=== PATIENT | male | born 1980 | race Caucasian/White ===

== ENCOUNTER 2022-09-22 04:17 | Day surgery (SDC) | payer BC, OTHER ==
[2022-09-20 16:25] VITALS: BMI 26.1
[2022-09-22 10:33] VITALS: TEMP 97.7
[2022-09-22 11:19] VITALS: BP 117/67; PULSE 66; RESP 19
== END 2022-09-22 11:26 | disposition home or self-care (01) ==
LOC: JASU-ENDO 04:17
PROVIDERS: ATTEND Internal Medicine Gastroenterology
PROC: 0DJD8ZZ Inspection of Lower Intestinal Tract, Via Natural or Artificial Opening Endoscopic (ICD-10-PCS; principal; 2022-09-22 10:00)
DX: Z12.11 Encounter for screening for malignant neoplasm of colon (principal); D12.8 Benign neoplasm of rectum; K64.8 Other hemorrhoids; K63.5 Polyp of colon
CPT/HCPCS: 88305-TC

== ENCOUNTER 2023-01-17 11:55 | Emergency (ER) | payer BC, OTHER ==
[2023-01-17 12:09] VITALS: BP 131/78; PULSE 77; RESP 18; TEMP 97.6; BMI 26.5
[2023-01-17 13:32] LABS: BASO % 0.4 % (0-2.0); EOS % 3.5 % (0-4.5); HEMATOCRIT 45.4 % (35.4-49); HEMOGLOBIN 15.9 GM/dL (11.7-16.9); LYMPH % 15.5 % (8-40); MCH 29.7 pg (25.7-33.7); MCHC 35.1 g/dl (32.0-35.9); MEAN CELL VOLUME 84.8 fl (80-96); MEAN PLT VOLUME 7.3 fl (7.5-11.1); MONO % 6.6 % (3.8-10.2); PLATELET COUNT 261 10^3/uL (134-434); RBC 5.35 M/mm3 (4.00-5.60); RDW 12.9 % (11.9-15.9); WHITE BLOOD COUNT 9.1 K/mm3 (4.0-10.0)
[2023-01-17 13:55] LABS: ALBUMIN 4.3 g/dl (3.4-5.0)
[2023-01-17 13:57] LABS: BLOOD UREA NITROGEN 12.1 mg/dL (7-18); CALCIUM 9.1 mg/dL (8.5-10.1)
[2023-01-17 14:01] LABS: BILIRUBIN,TOTAL 0.6 mg/dL (0.2-1); TOT PROT 7.1 g/dl (6.4-8.2)
[2023-01-17 14:03] LABS: CREATININE 0.7 mg/dL (0.55-1.3)
== END 2023-01-17 16:47 | disposition home or self-care (01) ==
LOC: JER 11:55
DX: R07.89 Other chest pain (principal); Z20.822 Contact with and (suspected) exposure to COVID-19
CPT/HCPCS: 0241U-QW; 36415; 71046-TC-FY; 80053; 82550; 84484; 85025; 93005; 93010; 99285-25

== ENCOUNTER 2023-04-05 12:14 | Emergency (ER) | payer BC, OTHER ==
[2023-04-05 12:31] VITALS: BP 154/74; PULSE 81; RESP 18; TEMP 99; BMI 27.2
[2023-04-05] MEDS ORDERED: ACETAMINOPHEN 325 MG TABLET (FP) PO ONE (12:33)
[2023-04-05] MEDS ORDERED: LIDOCAINE 5% TOPICAL PATCH TP ONE (12:43)
[2023-04-05] MEDS ORDERED: LIDOCAINE 5% TOPICAL PATCH ONE (13:00)
[2023-04-05] MEDS ORDERED: ACETAMINOPHEN 325 MG TABLET (FP) ONE (13:00)
[2023-04-05 13:49] LABS: HEMOGLOBIN 16.4 G/dL (11.7-16.9); MCH 30.1 pg (25.7-33.7); MCHC 34.3 g/dl (32.0-35.9); MEAN CELL VOLUME 87.9 fl (80-96); MEAN PLT VOLUME 7.6 fl (7.5-11.1); PLATELET COUNT 240.9 10^3/uL (134-434); RBC 5.46 10^6/uL (4.00-5.60); RDW 13.7 % (11.9-15.9); WHITE BLOOD COUNT 8.3 10^3/uL (4.0-10.8)
[2023-04-05 14:14] LABS: ALBUMIN 4.7 g/dl (3.4-5.0); ALK PHOS 76 U/L (45-117); ANION GAP 9 mmol/L (4-13); BILIRUBIN,TOTAL 0.6 mg/dl (0.2-1); CALCIUM 9.6 mg/dl (8.5-10.1); CHLORIDE 102 mmol/L (98-107); CO2 30 mmol/L (21-32); CREATININE 0.8 mg/dl (0.6-1.3); GLUCOSE,RANDOM 88 mg/dl (74-106); SGOT/AST 15 U/L (15-37); SGPT/ALT 18 U/L (7-52); SODIUM 141 mmol/L (136-145); TOT PROT 6.9 g/dl (6.4-8.2)
[2023-04-05 15:31] LABS: PLATELET ESTIMATE ADEQUATE
== END 2023-04-05 14:52 | disposition home or self-care (01) ==
LOC: FER 12:14
DX: R07.9 Chest pain, unspecified (principal); R06.02 Shortness of breath; R05.9 Cough, unspecified; R09.81 Nasal congestion
CPT/HCPCS: 36415; 71046-TC-FY; 80053; 84484; 85025; 85379; 93005; 99285-25

== ENCOUNTER 2023-06-17 04:27 | Day surgery (SDC) | payer BC, OTHER ==
[2023-06-13 11:18] VITALS: BMI 26.9
[2023-06-17 11:04] VITALS: TEMP 98.9
[2023-06-17 11:31] VITALS: RESP 20
[2023-06-17 11:49] VITALS: BP 121/92; PULSE 72
== END 2023-06-17 12:05 | disposition home or self-care (01) ==
LOC: JASU-ENDO 04:27
PROVIDERS: ATTEND Internal Medicine Gastroenterology
PROC: 0DB68ZX Excision of Stomach, Via Natural or Artificial Opening Endoscopic, Diagnostic (ICD-10-PCS; 2023-06-17)
PROC: 0DB28ZX Excision of Middle Esophagus, Via Natural or Artificial Opening Endoscopic, Diagnostic (ICD-10-PCS; 2023-06-17)
PROC: 0DB48ZX Excision of Esophagogastric Junction, Via Natural or Artificial Opening Endoscopic, Diagnostic (ICD-10-PCS; principal; 2023-06-17 11:00)
DX: K21.00 Gastro-esophageal reflux disease with esophagitis, without bleeding (principal); K44.9 Diaphragmatic hernia without obstruction or gangrene; K29.50 Unspecified chronic gastritis without bleeding
CPT/HCPCS: 88305-TC; 88342-TC